=== PATIENT | male | born 1995 | race Caucasian/White ===

== ENCOUNTER 2017-12-08 07:49 | Day surgery (SDC) | payer OTHER ==
[2017-12-02 10:56] VITALS: BMI 29.9
[2017-12-08] MEDS ORDERED: PROPOFOL 20 ML ONE ×2 (07:57)
[2017-12-08] MEDS ORDERED: LIDOCAINE HCL/PF 2% SDV 5ML VIAL ONE ×2 (07:58→08:42)
[2017-12-08 08:08] VITALS: TEMP 97.9
[2017-12-08 09:52] VITALS: BP 108/58; PULSE 82
--- NOTE | 2017-12-09 11:23 | PATH ---
Surgical Pathology Report Patient Name: CHANDRAKANT MOFFETT [facility]. Rec. #: [id number] /Age/Gender: 1995 (Age: 22) / M Account: [id number] Location: [facility]-ENDOSCOPY Taken: 12/08/2017 Received: 12/08/2017 Reported: 12/09/2017 Physicians: Edward Apodaca M.D. Specimen(s) Received A: BX DUODENUM B: BX ANTRUM C: BX GE JUNCTION D: BX ESOPHAGUS Clinical History Preoperative diagnosis: Dysphagia Postoperative diagnosis: Gastritis, rule out celiac, esophageal stricture Final Diagnosis A. DUODENUM, BIOPSY: DUODENAL MUCOSA WITH NO PATHOLOGIC CHANGES. NO HISTOLOGIC EVIDENCE OF GLUTEN SENSITIVE ENTEROPATHY (CELIAC SPRUE) IDENTIFIED. B. STOMACH, ANTRUM, BIOPSY: GASTRIC ANTRAL AND FUNDIC MUCOSA WITH NO PATHOLOGIC CHANGES. IMMUNOSTAIN FOR H. PYLORI IS NEGATIVE. C. GE JUNCTION, BIOPSY: SQUAMOUS AND GASTRIC MUCOSA WITH ACUTE AND CHRONIC INFLAMMATION, PAPILLOMATOSIS, AND SCATTERED INTRAEPITHELIAL EOSINOPHILS CONSISTENT WITH REFLUX ESOPHAGITIS. NO INTESTINAL METAPLASIA IDENTIFIED (NO MAC'S IDENTIFIED). D. ESOPHAGUS, BIOPSY: SQUAMOUS EPITHELIUM WITH MARKEDLY INCREASED INTRAEPITHELIAL EOSINOPHILS, WITH EOSINOPHILIC ABSCESS FORMATION AND ULCERATION. BENIGN GASTRIC TYPE EPITHELIUM PRESENT. NO CARCINOMA IDENTIFIED. NO INTESTINAL METAPLASIA IDENTIFIED (NO MAC'S IDENTIFIED). Comment: There is a prominent eosinophil infiltrate in Specimen D. Clinical correlation is required for a diagnosis of eosinophilic esophagitis. Electronically Signed Booker Miller M.D. Gross Description A. Received in formalin, labeled "duodenum" are 3 bailey, irregular portions of soft tissue ranging from 0.3-0.4 cm. in greatest dimension. The specimens are submitted in toto in one cassette. B. Received in formalin, labeled "antrum" are 2 bailey, irregular portions of soft tissue measuring 0.3 and 0.5 to cm. in greatest dimension. The specimens are submitted in toto in one cassette. C. Received in formalin, labeled "GE junction" is a bailey, irregular portion of soft tissue measuring 0.2 cm. in greatest dimension. The specimen is submitted in toto in one cassette. D. Received in formalin, labeled "esophagus" are 4 bailey, irregular portions of soft tissue ranging from 0.1-0.4 cm. in greatest dimension. The specimens are submitted in toto in one cassette. 12/08/2017/2018
== END 2017-12-08 09:45 | disposition home or self-care (01) ==
LOC: FASU-ENDO 07:49
PROVIDERS: ATTEND Internal Medicine Gastroenterology
PROC: 0DB48ZX Excision of Esophagogastric Junction, Via Natural or Artificial Opening Endoscopic, Diagnostic (ICD-10-PCS; 2017-12-08)
PROC: 0D748ZZ Dilation of Esophagogastric Junction, Via Natural or Artificial Opening Endoscopic (ICD-10-PCS; 2017-12-08)
PROC: 0DB98ZX Excision of Duodenum, Via Natural or Artificial Opening Endoscopic, Diagnostic (ICD-10-PCS; principal; 2017-12-08 08:45)
PROC: 0DB68ZX Excision of Stomach, Via Natural or Artificial Opening Endoscopic, Diagnostic (ICD-10-PCS; 2017-12-08 08:45)
DX: K22.2 Esophageal obstruction (principal); R13.10 Dysphagia, unspecified; K22.8 Other specified diseases of esophagus
CPT/HCPCS: 88305-TC; 88342-TC